=== PATIENT | male | born 1995 | race Caucasian/White ===

== ENCOUNTER 2025-02-08 18:18 | Emergency (ER) | payer OTHER, SELFPAY ==
--- OUTSIDE RECORDS SUMMARY | 2025-02-08 18:20 | XMS_ITS | Clinical Summary ---
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 18 g 5Active Active Problems ProblemNoted DateDiagnosed DateAttention deficit hyperactivity disorder (ADHD), combined type04/18/2020 Social History Tobacco UseTypesPacks/DayYears UsedDateSmoking Tobacco: Never AssessedSex and Gender InformationValueDate RecordedSex Assigned at BirthNot on fileLegal Sex Male07/19/2024 11:12 PM CDTGender IdentityNot on fileSexual OrientationNot on file Last Filed Vital Signs Vital SignReadingTime TakenCommentsBlood Dixiopzq051/6907 9:00 PM CDT Kbcye3313/08/2025 9:00 PM OTJVrbvcyfyfpj94.4 ??C (97.6 ??F)08/23/2024 8:00 PM CDTRespiratory Bvkt234808/23/2024 8:45 PM CDTOxygen Scykogdctv09%08/23/2024 9:00 PM CDTInhaled Oxygen Concentration--Jydxkf99.5 kg (173 lb)08/23/2024 8:00 PM CDT Gywvgt111.6 cm (6' 5)08/23/2024 8:00 PM CDTBody Mass Index20.51008/23/2024 8:00 PM CDT Plan of Treatment Health MaintenanceDue DateLast DoneCommentsADVANCE CARE DJJOBRZP1995ANNUAL REVIEW OF HM KIJMUF05 1995YEARLY PREVENTIVE VISIT1998PHQ-2 (once per calendar year)5COVID-19 VACCINE (1 - season)2024INFLUENZA VACCINE (#1)/, 03/30/2006DTAP/TDAP/TD VACCINE (8 - Td or Tdap), 09/13/2007, 03/12/2000, Additional history exists ZOSTER VACCINE (1 of 2)2045HEPATITIS B TCFFSVFIsobzhsyb09/06/1996, 1995, 1995MENINGITIS VACCINEAged Out09/13/2007No longer eligible based on patient's age to complete this topicHEPATITIS C SCREENINGCompleted 07/09/2022HIV RCQHCDDHYAglwwsngm08/24/2023HPV VACCINE (No Doses Required) CompletedPNEUMOCOCCAL VACCINE: PEDIATRICS (0 to 5 YEARS) AND AT-RISK PATIENTS (6 to 49 YEARS)Aged OutNo longer eligible based on patient's age to complete this topic Insurance Care Teams Team MemberRelationshipSpecialtyStart DateEnd Date No Ref-Primary, Physician PCP - General07/19/24
--- OUTSIDE RECORDS SUMMARY | 2025-02-08 18:20 | XMS_ITS | Clinical Summary ---
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 30 Tablet 5Active dextroamphetamine-amphetamine (AdderalL) 5 mg tablet Indications:Attention deficit hyperactivity disorder (ADHD), predominantly inattentive typeTake 1 Tablet (5 mg) by mouth once daily in the afternoon. 30 Tablet 5Active Active Problems ProblemNoted DateDiagnosed DateAttention deficit hyperactivity disorder (ADHD), combined type04/18/2020 Resolved Problems ProblemNoted DateDiagnosed DateResolved DateUnspecified asthma(493.90)08/16/2007 07/28/2023 Immunizations ImmunizationAdministration DatesNext DueDTP-HIB1995,1995,1995 DTaP03/12/2000DTaP-HIB (TriHIBIT)05/25/1996Hepatitis B (Peds)01/22/1996, 1995,1995Inactivated Polio Eqxtano0703/12/2000Influenza, IIV3 (Age >=3 years)01/08/2007,03/30/2006Influenza, Whole Virus01/13/2003MMR03/12/2000, 05/25/1996Meningococcal Vaccine (Menactra)09/13/2007Oral Polio Yxvfkjs6905/25/1996 ,1995,1995Td (Age >=7 Years)04/14/2019Tdap09/13/2007Varicella Wplpcnp4109/13/2007,01/22/1996 Family History Medical HistoryRelationNameCommentsGood HealthFatherGood HealthMotherSkin cancer Paternal GrandmotherRelationNameStatusCommentsBrother 1AlivestepBrother 2Alive stepBrother 3AlivestepFatherAliveMotherAlivePaternal GrandmotherSisterMaryAlive Social History Tobacco UseTypesPacks/DayYears UsedDateSmoking Tobacco: NeverPassive Smoke Exposure: NeverSmokeless Tobacco: FormerChew Tobacco Cessation:Counseling Given: Yes Alcohol UseStandard Drinks/WeekCommentsYes0 (1 standard drink = 0.6 oz pure alcohol)occassionallyPHQ-2AnswerDate RecordedPHQ-2 TOTAL URKPX516Social ConnectionsAnswerDate RecordedDo you often feel lonely or isolated from those around you?lcohol UseAnswerDate RecordedHow often do you have a drink containing alcohol?How many drinks containing alcohol do you have on a typical day when you are drinking?How often do you have five or more drinks on one occasion?Financial Resource StrainAnswer Date RecordedDifficulty of Paying Living Gfgwekat591/08/2025Difficulty of Paying Living ExpensesNot on file05/24/2024Food InsecurityAnswerDate RecordedDo you worry your food will run out before you are able to buy more? 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 Gender IdentityNot on fileSexual OrientationNot on file Last Filed Vital Signs Vital SignReadingTime TakenCommentsBlood Kirlxhya552/7809 3:18 PM CDT Qwlqk2455 3:18 PM NQZBlmpfovsaip79.3 ??C (99.2 ??F)04/22/2023 8:23 AM CSTRespiratory Sdwl077004/22/2023 8:23 AM CSTOxygen Tqeyefyrkq578%11/03/2024 3:18 PM CDTInhaled Oxygen Concentration--Mhycxh65.5 kg (184 lb)11/03/2024 3:18 PM CDT Gdcrqo752 cm (6' 4.38)08/25/2024 3:37 PM CDTBody Mass Index22.18008/25/2024 3:37 PM CDT Plan of Treatment Health MaintenanceDue DateLast DoneCommentsCOVID-19 vaccine series ( season)2024Influenza Vaccine (#1)/, 03/30/2006, 01/13/2003BMI (ht and wt on same day) for age 18+, 07/28/2023, 07/16/2022, Additional history existsDepression screening for age 12+HPV series for age 9-45 (1 - 3-dose SCDM series) 11/03/2025Postponed from 2022 (Patient discretion)Tetanus booster /, 09/13/2007Hepatitis B series for 19+Loyzlijln28/06/1996, 1995, 1995HIV for age 15-60Seolmczpn70/24/2023Hepatitis C screening for age 18-37Ivcxccfdt54/24/2023neumococcal series for age 6-49Aged OutNo longer eligible based on patient's age to complete this topic Procedures Procedure NamePriorityDate/TimeAssociated DiagnosisCommentsLC HIV-1/O/2, 4TH KGVYTSERKZThfydoj10/24/2023 3:36 PM CDT Screen for STD (sexually transmitted disease) LC HCV ANTIBODY RFX TO QUANT VCDEzahaux17/24/2023 3:36 PM CDT Screen for STD (sexually transmitted disease) from Last 3 Months or Most Recently Relevant to Health Maintenance Results * LC HCV ANTIBODY RFX TO QUANT PCR (07/09/2022 3:36 PM CDT)ComponentValueRef RangeTest MethodAnalysis TimePerformed AtPathologist SignatureHCV AbNon ReactiveNon Umtauttt45/28/2023 6:07 AM CDTLESSENTIA [facility] ([facility])Specimen (Source)Anatomical Location / Laterality Collection Method / VolumeCollection TimeReceived TimeBloodBLOOD SPECIMEN / UnknownVenipuncture / Gqgasda9907/09/2022 3:36 PM CDT07/09/2022 3:36 PM CDT Narrative [facility] - 07/13/2022 6:07 AM CDT Performed at: [address] - [address] ??[id number] Car Wrecker: Kush Ruby MD, Phone: ??[phone] Authorizing ProviderResult TypeResult StatusKrgina Brewster PALABORATORY Final ResultPerforming OrganizationAddressCity/State/ZIP CodePhone Number [facility] [address] [place] [address] * LC HIV-1/O/2, 4TH GENERATION (07/09/2022 3:36 PM CDT)ComponentValueRef Range Test MethodAnalysis TimePerformed AtPathologist SignatureHIV Scr 4th GenNon ReactiveNon Emcahrwi56/27/2023 1:14 PM CDTLESSENTIA HEALTH [facility] ([facility])Comment: HIV Negative HIV-1/HIV-2 antibodies and HIV-1 p24 antigen were NOT detected. There is no laboratory evidence of HIV infection. Specimen (Source)Anatomical Location / LateralityCollection Method / Volume Collection TimeReceived TimeBloodBLOOD SPECIMEN / UnknownVenipuncture / Unknown 07/09/2022 3:36 PM CDT07/09/2022 3:36 PM CDT Narrative [facility]) - 07/12/2022 1:14 PM CDT Performed at: [address] ??[id number] Car Wrecker: Kush Ruby MD, Phone: ??[phone] Authorizing ProviderResult TypeResult StatusFitoystalbin Brewster PALABORATORY Final ResultPerforming OrganizationAddressCity/State/ZIP CodePhone Number [facility] from Last 3 Months or Most Recently Relevant to Health Maintenance Insurance * Guarantor: [employer]Account TypeRelation to PatientDate of BirthPhoneBilling AddressOcc Health/ApdmQfuehfuh13/01/2001 [address] [place] [address] Care Teams Team MemberRelationshipSpecialtyStart DateEnd Date Votel, Omari Valentine MD [address] [place] [address] PCP - GeneralFamily Practice08/20/22
[2025-02-08 18:21] VITALS: BP 132/88; PULSE 86; RESP 18; TEMP 36.1; O2SAT 100
[2025-02-08 19:27] LABS: Appearance Urine Clear (Clear)
--- NOTE | 2025-02-08 22:20 | ED.GENADULT ---
HPI - General Adult General Chief complaint: Urogenital Problems, Male Stated complaint: peed blood Time Seen by Provider: 02/08/25 18:50 History of Present Illness HPI narrative: Patient presents to the emergency department complaining of hematuria. Patient states about 1 hour ago he urinated and noticed he had blood in his urine. Patient states he feels fine other than the blood in his urine. Patient denies any renal issues in the past. Patient has no abdominal pain. Patient states he has not had any trouble urinating since noticing the blood. Urinated just before he got to the ER and urine was clear. 30-year-old man presenting to the emergency department with concern of hematuria. He 1 hour prior to presentation the Emergency Department noted that he had blood in his urine. No abdominal pain. There has been no trauma. Never had an issue before. No fever. No dysuria. No unusual discharge from the penis. No rash. No swelling. No recent infections like sore throat/strep. No concerning medication use. No painful defecation. Not recently sexually active. Describes herpetic eruptions. Related Data Home Medications ?Medication ?Instructions ?Recorded ?Confirmed dextroamphetamine-amphetamine 20 1 tab PO DAILY 02/08/25 02/08/25 mg tablet Previous Rx's ?Medication ?Instructions ?Recorded sulfamethoxazole 800 1 tab PO BID 12 days #24 tabs 02/08/25 mg-trimethoprim 160 mg tablet (Bactrim DS) Allergies Allergy/AdvReac Type Severity Reaction Status Date / Time No Known Drug Allergies Allergy Verified 02/08/25 18:26 Review of Systems Status of ROS: Reports: 6 or more systems reviewed and unremarkable except as noted in History and below [facility] Social History Smoking Status: Never smoker Second hand tobacco smoke exposure: No How often do you have a drink containing alcohol: never AUDIT-C Alcohol total score: 0 Non-prescribed substance use: denies use Exam Narrative: Exam Narrative: Pleasant. NAD. Slim. Tall. Skin is warm and dry. Extremities are without edema. Abdomen is soft without wall defect. No inguinal lymphadenopathy. No flank pain. Heart in regular rate and rhythm. Genitourinary exam is with significant tenderness in the right epididymal structures and the testicle. I do not appreciate significant swelling otherwise about the testicle. No nodule appreciated. External urethra unremarkable. He had noted some lesions but I do not appreciate any blisters at this time. Const: Vital Signs, click to edit/add: Vital Signs - 24 hr 02/08/25 18:21 Temperature 97 F L Pulse Rate [Right Pulse Oximeter] 86 Respiratory Rate 18 Blood Pressure [Ri ght Upper Arm] 132/88 Pulse Oximetry 100 Oxygen Delivery Me thod Room Air Documenting provider has reviewed patient's vital signs: yes Course Vital Signs Vital signs: Initial Vital Signs Temperature 97 F L 02/08/25 18:21 Temperature Source Temporal Artery Scan 02/08/25 18:21 Pulse Rate 86 02/08/25 18:21 Pulse Rhythm Regular 02/08/25 18:21 Pulse Strength 3+ Normal 02/08/25 18:21 Respiratory Rate 18 02/08/25 18:21 Blood Pressure 132/88 02/08/25 18:21 Blood Pressure Mean 102 02/08/25 18:21 Blood Pressure Position Sitting 02/08/25 18:21 Pulse Oximetry 100 02/08/25 18:21 Oxygen Delivery Method Room Air 02/08/25 18:21 Vital Signs Temperature 97 F L 02/08/25 18:21 Pulse Rate 86 02/08/25 18:21 Respiratory Rate 18 02/08/25 18:21 Blood Pressure 132/88 02/08/25 18:21 Pulse Oximetry 100 02/08/25 18:21 Oxygen Delivery Method Room Air 02/08/25 18:21 Temperature 98.4 F 02/08/25 23:44 Pulse Rate 81 02/08/25 23:44 Respiratory Rate 18 02/08/25 23:44 Blood Pressure 122/78 02/08/25 23:44 Pulse Oximetry 100 02/08/25 23:44 Oxygen Delivery Method Room Air, High Flow Nasal Cannula 02/08/25 23:44 Medical Decision Making MDM Narrative Medical decision making narrative: I do think epididymal orchitis might be enough reason to explain this hematuria. Certainly this can happen spontaneously. Does not seem to have evidence otherwise of significant nephritis or nephrotic syndrome nor risk factors. Exam and history does not suggest ureteral stone and colic. Does not seem to have symptoms otherwise of prostatitis either. Would double check urine for urinary tract infection otherwise for infection or findings that might suggest more nephritis or nephrotic syndrome. And then further lab work at that point. I do not think needs ultrasound at this point. Urinalysis shows 2+ blood only. Discussed differential and concerns. Mutually agreed just to treat epididymo-orchitis and proceed from there. Low risk for sexually transmitted infection. See patient discharge plan for further discussion I think the blood you experienced was due to inflammation in the epididymal structures on that right side. You also are tender in that same side testicle. This can represent inflammation, trauma, infection. I would offer antibiotics but if you prefer, consider taking 400mg of ibuprofen 3 times daily over the next 4 days or alternatively 400-440 mg of naproxen twice daily over the same time period. Be sure to wear more snug, supportive briefs over this coming week at least. If you are still a rather tender after 4 days, and considering your low risk activity, I am sending in a prescription of Bactrim (antibiotic) to be on hold at your pharmacy that you could then start. Nice to know that somebody is out there doing good. Happy holidays. Lab Data Lab results reviewed: Yes I reviewed the patient's lab results Labs: Lab Results 02/08/25 Range/Units 19:10 Urine Color Yellow (Yellow) Urine Appearance Clear (Clear) Urine pH 6.5 (5.0-8.5) Ur Specific [place] <= 1.005 (1.000-1.030) Urine Protein Negative (Negative) Urine Glucose (UA) Negative (Negative) Urine Ketones Negative (Negative) Urine Blood 2+ A (Negative) Urine Nitrite Negative (Negative) Urine Bilirubin Negative (Negative) Urine Urobilinogen 0.2 (0.2-1.0) Ur Leukocyte Esterase Negative (Negative) Urine RBC 0-2 (0-2) Urine WBC 0-2 (0-5) Ur Squamous Epith Cells None (None-Few) Urine Bacteria None (None) Discharge Plan Discharge Clinical Impression: Epididymo-orchitis, Hematuria Patient Disposition: Home, Self-Care Condition: Stable Additional Instructions: I think the blood you experienced was due to inflammation in the epididymal structures on that right side. You also are tender in that same side testicle. This can represent inflammation, trauma, infection. I would offer antibiotics but if you prefer, consider taking 400mg of ibuprofen 3 times daily over the next 4 days or alternatively 400-440 mg of naproxen twice daily over the same time period. Be sure to wear more snug, supportive briefs over this coming week at least. If you are still a rather tender after 4 days, and considering your low risk activity, I am sending in a prescription of Bactrim (antibiotic) to be on hold at your pharmacy that you could then start. Nice to know that somebody is out there doing good. Happy holidays. Prescriptions: New sulfamethoxazole-trimethoprim [Bactrim DS] 800-160 mg tablet 1 tab PO BID 12 Days Qty: 24 0RF No Action dextroamphetamine-amphetamine 20 mg tablet 1 tab PO DAILY Follow Up/Referrals: Provider,Not a Local [Primary Care Provider, Family Practice] Stand Alone Forms: [employer] Info Instructions
[2025-02-08 23:44] VITALS: BP 122/78; PULSE 81; RESP 18; TEMP 36.9; O2SAT 100
== END 2025-02-08 23:47 | disposition home or self-care (01) ==
PROVIDERS: Emergency Provider Family Medicine
DX: N45.3 Epididymo-orchitis (principal); R31.9 Hematuria, unspecified
CPT/HCPCS: 81001; 81003; 99283; 99284